=== PATIENT | female | born 1995 | race Hispanic/Latino ===

== ENCOUNTER 2017-09-06 01:54 | Emergency (ER) | payer BC ==
[~2017-09-06] VITALS: Ht 121.9 cm; Wt 62.0 kg
[~2017-09-06 01:54] MED LIST: MOTRIN800 MG PO; NAPROSYN500 MG OR; NO HOME MEDS
[2017-09-06] MEDS ORDERED: SPRINTEC 2828 DAY PO (02:03)
[2017-09-06] MEDS ORDERED: SPIRONOLACT25 MG PO (02:03)
[2017-09-06 02:40] LABS: URINE BILIRUBIN - DIPSTICK NEGATIVE (NEGATIVE); URINE BLOOD DIPSTICK MODERATE (NEGATIVE); URINE COLOR YELLOW; URINE GLUCOSE - DIPSTICK NEGATIVE (NEGATIVE); URINE KETONE NEGATIVE (NEGATIVE); URINE NITRITE - DIPSTICK NEGATIVE (Negative); URINE PROTEIN - DIPSTICK NEGATIVE (NEG-TRACE); URINE SPECIFIC GRAVITY >=1.030; URINE UROBILINOGEN - DIPSTICK 0.2 E.U./dL (0.2)
[2017-09-06 02:41] LABS: URINE CLARITY SLIGHT CLOUDY; URINE LEUK ESTERASE SMALL (NEGATIVE)
[2017-09-06 02:49] LABS: URINE BACTERIA FEW hpf; URINE SQUAMOUS EPITHELIAL CELL FEW EPI/hpf (0-FEW); URINE WBC 20-50 WBC/hpf (0-5)
[2017-09-06] MEDS ORDERED: CIPROFLOXACN500 MG PO (03:06)
[2017-09-06] MEDS ORDERED: PYRIDIUM200 MG PO (03:06)
[2017-09-06 03:16] VITALS: BP 117/67
== END 2017-09-06 03:10 | disposition home or self-care (01) | DRG 690 ==
LOC: ED 01:54
PROVIDERS: Emergency Medicine
DX: N39.0 Urinary tract infection, site not specified (principal); R30.0 Dysuria; R35.0 Frequency of micturition

== ENCOUNTER 2018-02-09 11:44 | Emergency (ER) | payer BC ==
[~2018-02-09] VITALS: Ht 149.9 cm; Wt 61.3 kg
[~2018-02-09 11:44] MED LIST changes: +CIPROFLOXACN500 MG PO; +PYRIDIUM200 MG PO; +SPIRONOLACT25 MG PO; +SPRINTEC 2828 DAY PO
[2018-02-09] MEDS ORDERED: AUGMENTIN500TAB PO (13:04)
[2018-02-09 13:24] VITALS: BP 129/79
== END 2018-02-09 13:35 | disposition home or self-care (01) | DRG 605 ==
LOC: ED 11:44
DX: S91.331A Puncture wound without foreign body, right foot, initial encounter (principal); W22.8XXA Striking against or struck by other objects, initial encounter; Y92.009 Unspecified place in unspecified non-institutional (private) residence as the place of occurrence of the external cause

== ENCOUNTER 2018-07-15 11:57 | Emergency (ER) | payer BC ==
[~2018-07-15] VITALS: Ht 149.9 cm; Wt 61.4 kg
[~2018-07-15 11:57] MED LIST changes: +AUGMENTIN500TAB PO
[2018-07-15 12:33] VITALS: BP 124/79
[2018-07-15 12:48] LABS: HEMATOCRIT 41.3 % (37.0-47.0); HEMOGLOBIN 14.4 g/dl (12.0-16.0); IMMATURE GRANULOCYTES 0.2 % (0.0-5.0); MEAN CELL VOLUME 89.6 fL CALC (80.0-100.0); MEAN CORPUSCULAR HGB 31.2 pG CALC (26.0-32.0); MEAN CORPUSCULAR HGB CONC 34.9 g/L CALC (32.0-36.0); NEUT# 3.56 thou/uL (2.00-7.15); RED BLOOD COUNT 4.61 mill/uL (4.20-5.60); RED CELL DISTRI WIDTH 11.9 % (11.5-15.5)
[2018-07-15 12:55] LABS: URINE BILIRUBIN - DIPSTICK NEGATIVE (NEGATIVE); URINE BLOOD DIPSTICK LARGE (NEGATIVE); URINE COLOR YELLOW; URINE GLUCOSE - DIPSTICK NEGATIVE (NEGATIVE); URINE KETONE NEGATIVE (NEGATIVE); URINE LEUK ESTERASE NEGATIVE (NEGATIVE); URINE NITRITE - DIPSTICK NEGATIVE (Negative); URINE PROTEIN - DIPSTICK NEGATIVE (NEG-TRACE); URINE SPECIFIC GRAVITY 1.025; URINE UROBILINOGEN - DIPSTICK 0.2 E.U./dL (0.2)
[2018-07-15 12:56] LABS: URINE CLARITY SL CLOUDY
[2018-07-15 13:08] LABS: ALKALINE PHOSPHATASE 69 u/l (38-126); ANION GAP 15 (6-22 (CALC)); BILIRUBIN, TOTAL 1.1 mg/dL (0.0-1.4); BUN 12 mg/dL (7-17); BUN/CREATININE RATIO 18 (12-20 (CALC)); CARBON DIOXIDE 22 mmol/l (22-30); CHLORIDE 108 mmol/l (95-108); CREATININE 0.7 mg/dL (0.5-1.0); GFR > 60 ML/MIN (>=60 (CALC)); GFR FOR AFR.AMER. > 60 ML/MIN (>=60 (CALC)); LIPASE 86 u/l (23-300); POTASSIUM 4.3 mmol/l (3.5-5.1); SGOT/AST 18 u/l (14-36); SGPT/ALT 25 u/l (9-52); SODIUM 141 mmol/l (137-146); TOTAL PROTEIN 7.2 g/dL (6.3-8.2)
[2018-07-15 13:12] LABS: ALBUMIN 4.1 g/dL (3.2-5.0)
[2018-07-15] MEDS ORDERED: REGLAN10 MG PO (13:20)
== END 2018-07-15 13:28 | disposition home or self-care (01) | DRG 103 ==
LOC: ED 11:57
PROVIDERS: Family Medicine
DX: G43.909 Migraine, unspecified, not intractable, without status migrainosus (principal); R10.12 Left upper quadrant pain

== ENCOUNTER 2019-05-20 23:44 | Emergency (ER) | payer BC ==
[~2019-05-20] VITALS: Ht 149.9 cm; Wt 65.0 kg
[~2019-05-20 23:44] MED LIST changes: +REGLAN10 MG PO
[2019-05-20] MEDS ORDERED: MUPIROCIN21 TOP (23:51)
[2019-05-21] MEDS ORDERED: LORTAB 1010 MG PO (00:36)
[2019-05-21] MEDS ORDERED: BACTRIM DS1 TAB PO (00:36)
[2019-05-21 00:45] VITALS: BP 120/60
[2019-05-21] MEDS ORDERED: KEFLEX500 MG PO (20:00)
== END 2019-05-21 00:49 | disposition home or self-care (01) | DRG 603 ==
LOC: ED 23:44
PROC: 0H97XZZ Drainage of Abdomen Skin, External Approach (ICD-10-PCS; principal; 2019-05-21)
DX: L02.211 Cutaneous abscess of abdominal wall (principal); B95.62 Methicillin resistant Staphylococcus aureus infection as the cause of diseases classified elsewhere

== ENCOUNTER 2019-05-21 19:26 | Emergency (ER) | payer BC ==
[~2019-05-21] VITALS: Ht 149.9 cm; Wt 66.0 kg
[~2019-05-21 19:26] MED LIST changes: +BACTRIM DS1 TAB PO; +LORTAB 1010 MG PO; +MUPIROCIN21 TOP
[2019-05-21] MEDS ORDERED: KEFLEX500 MG PO (20:00)
[2019-05-21 20:05] VITALS: BP 128/71
== END 2019-05-21 20:05 | disposition home or self-care (01) | DRG 951 ==
LOC: ED 19:26
DX: Z48.01 Encounter for change or removal of surgical wound dressing (principal)

== ENCOUNTER 2019-05-23 11:01 | Emergency (ER) | payer BC ==
[~2019-05-23] VITALS: Ht 149.9 cm; Wt 66.0 kg
[~2019-05-23 11:01] MED LIST changes: +KEFLEX500 MG PO
[2019-05-23 11:30] VITALS: BP 119/75
== END 2019-05-23 11:30 | disposition home or self-care (01) | DRG 951 ==
LOC: ED 11:01
DX: Z48.01 Encounter for change or removal of surgical wound dressing (principal)

== ENCOUNTER 2023-03-15 16:57 | Emergency (ER) | payer BC ==
[~2023-03-15] VITALS: Ht 149.9 cm; Wt 72.0 kg
[2023-03-15 17:14] VITALS: BP 117/68
[2023-03-15 17:45] LABS: HEMOGLOBIN 12.9 g/dl (12.0-16.0); LYMPH% 25.4 % (15-41); MEAN CELL VOLUME 91.5 fL CALC (80.0-100.0); MEAN CORPUSCULAR HGB 30.3 pG CALC (26.0-32.0); MEAN CORPUSCULAR HGB CONC 33.1 g/dL CAL (32.0-36.0); MONO% 11.5 % (2-13); NEUT# 2.04 thou/uL (2.00-7.15); NEUT% 63.1 % (42-76); RED BLOOD COUNT 4.26 mill/uL (4.20-5.60); RED CELL DISTRI WIDTH 11.7 % (11.5-15.5)
[2023-03-15 17:59] LABS: ALBUMIN 4.4 g/dL (3.2-5.0); ALKALINE PHOSPHATASE 70 u/l (38-126); ANION GAP 14 (6-22 (CALC)); BILIRUBIN, TOTAL 0.4 mg/dL (0.02-1.3); BUN 11 mg/dL (7-17); BUN/CREATININE RATIO 15 (12-20 (CALC)); CARBON DIOXIDE 24 mmol/l (22-30); CHLORIDE 105 mmol/l (95-108); CREATININE 0.7 mg/dL (0.5-1.0); GFR FOR AFR.AMER. > 60 ML/MIN (>=60 (CALC)); GFR OTHER RACES > 60 ML/MIN (>=60 (CALC)); POTASSIUM 3.7 mmol/l (3.5-5.1); SGOT/AST 26 u/l (14-36); SODIUM 138 mmol/l (137-146); TOTAL PROTEIN 7.1 g/dL (6.3-8.2)
[2023-03-15 19:29] VITALS: BP 117/68
== END 2023-03-15 19:37 | disposition home or self-care (01) | DRG 833 ==
LOC: ED 16:57
PROVIDERS: Nurse Practitioner Family
DX: O20.0 Threatened abortion (principal); Z3A.08 8 weeks gestation of pregnancy